=== PATIENT | male | born 1965 | race Caucasian/White ===

== ENCOUNTER 2016-11-04 19:38 | Emergency (ER) | payer SELFPAY ==
[2016-11-04 19:38] VITALS: BMI 20.9
--- NOTE | 2016-11-04 21:54 | C.PDOC ---
History Of Present Illness 51 year old patient presents to the ED complaining of falling on his face prior to arrival. Patient admits to drinking alcohol tonight. He reports he feels fine. Patient denies shortness of breath, nausea, vomiting or any other complaints. (Yasemin Garcia) History Per: Patient History/Exam Limitations: intoxication Onset/Duration Of Symptoms: Mins (prior to arrival) Current Symptoms Are (Timing): Still Present Severity: None Pain Scale Rating Of: 0 Recent travel outside of the [place]: No Time Seen by Provider: 11/04/16 21:13 Chief Complaint (Nursing): Abnormal Skin Integrity Past Medical History Reviewed: Historical Data, Nursing Documentation, Vital Signs - Medical History PMH: Seizures ( PER EMS) Family History: States: Unknown Family Hx - Social History Hx Alcohol Use: Yes Hx Substance Use: No - Immunization History Hx Tetanus Toxoid Vaccination: No Hx Influenza Vaccination: No Hx Pneumococcal Vaccination: No Review Of Systems Except As Marked, All Systems Reviewed And Found Negative. Respiratory: Negative for: Shortness of Breath Gastrointestinal: Negative for: Nausea, Vomiting Physical Exam - Physical Exam Appears: Non-toxic, No Acute Distress, Other (intoxicated) Skin: Warm, Dry, Other (superficial abrasions to the distal aspect of the nose; mild erythema to the forehead) Head: Atraumatic, Normacephalic Eye(s): bilateral: Normal Inspection, EOMI Ear(s): Bilateral: Normal Nose: Normal Oral Mucosa: Moist Throat: Normal Neck: Normal ROM, Supple Chest: Symmetrical Cardiovascular: Rhythm Regular Respiratory: Normal Breath Sounds, No Rales, No Rhonchi, No Wheezing Gastrointestinal/Abdominal: Soft, No Tenderness Back: Normal Inspection, No CVA Tenderness Extremity: Normal ROM Neurological/Psych: Oriented x3, Normal Speech, Normal Cognition, Normal Cranial Nerves, Normal Motor, Normal Sensation Gait: Steady ED Course And Treatment O2 Sat by Pulse Oximetry: 100 (Room air) Pulse Ox Interpretation: Normal Progress Note: Plan: -Head CT. -Reassess and disposition. The wound was cleansed and dressed. CT was reviewed. Pending patient sobriety. Dr. Valera will reassess and disposition the patient. Disposition - Disposition Disposition Time: 22:50 - Disposition Referrals: [facility] [Outside] Disposition: HOME/ ROUTINE Condition: STABLE Additional Instructions: Return to the ED for any new or worsening symptoms Instructions: Head Injury (ED) - Clinical Impression Clinical Impression: ETOH abuse, Head contusion - PA / LOCOMOTIVE OPERATOR / Resident Statement MD/DO has reviewed & agrees with the documentation as recorded. - Scribe Statement The provider has reviewed the documentation as recorded by the Scribe - Scribe Statement Dione Marr All medical record entries made by the Scribe were at my direction and personally dictated by me. I have reviewed the chart and agree that the record accurately reflects my personal performance of the history, physical exam, medical decision making, and the department course for this patient. I have also personally directed, reviewed, and agree with the discharge instructions and disposition. (Yasemin Garcia) Addendum Addendum: Hx and Pe reviewed Pt remained stable CT neg On discharge pt is verbal with normal speech, steady gait, and no focal deficit (Mayur Valera)
[2016-11-05 00:38] VITALS: BP 131/76; PULSE 81; RESP 18; TEMP 98.3; O2SAT 99
--- NOTE | 2016-11-05 08:29 | CT ---
PROCEDURE: CT HEAD WITHOUT CONTRAST. HISTORY: Head trauma. COMPARISON: None available. TECHNIQUE: Axial computed tomography images were obtained through the head/brain without intravenous contrast. Radiation dose: Total exam DLP = 958 mGy-cm. This CT exam was performed using one or more of the following dose reduction techniques: Automated exposure control, adjustment of the mA and/or kV according to patient size, and/or use of iterative reconstruction technique. FINDINGS: HEMORRHAGE: No intracranial hemorrhage. BRAIN: Mild atrophy. Scattered focal lucencies in the subcortical and periventricular white matter suggestive for chronic microvascular ischemic change. VENTRICLES: Unremarkable. No hydrocephalus. CALVARIUM: Question chronic deformity of the right zygomatic arch. PARANASAL SINUSES: Scattered mucosal thickening of the maxillary sinuses. MASTOID AIR CELLS: Unremarkable as visualized. No inflammatory changes. OTHER FINDINGS: Dental caries. Intracranial vascular calcifications. IMPRESSION: No acute intracranial hemorrhage. Mild atrophy. Mild mucosal thickening of the maxillary sinuses. These findings were preliminarily reported at 10:11 p.m. on 11/04/[address] Jose F Wang from [facility].
== END 2016-11-05 00:38 | disposition home or self-care (01) ==
LOC: C.ER 19:38
DX: S00.93XA Contusion of unspecified part of head, initial encounter (principal); W19.XXXA Unspecified fall, initial encounter; F10.10 Alcohol abuse, uncomplicated